=== PATIENT | male | born 1955 | race African-American/Black ===

== ENCOUNTER 2017-02-08 18:54 | Inpatient (IN) | payer MEDICARE, MEDICAID ==
[~2017-02-08] VITALS: Ht 180.3 cm; Wt 60.1 kg
[2017-02-08] MEDS ORDERED: BENZ2TAB10 PO (18:58)
[2017-02-08] MEDS ORDERED: OLAN20TA2 PO (18:58)
[2017-02-08] MEDS ORDERED: FLUO-125 PO (18:58)
[2017-02-08 20:08] LABS: BASOPHILS % (AUTO) 0.9 % (0.0-2.0); EOSINOPHILS % (AUTO) 1.2 % (1.0-6.0); HEMATOCRIT 45.4 % (41-53); HEMOGLOBIN 14.6 g/dL (13.5-17.5); LYMPHOCYTES # (AUTO) 2.7 K/uL (1.0-4.8); LYMPHOCYTES % (AUTO) 20.3 % (22.0-44.0); MEAN CORPUSCULAR HEMOGLOBIN 28.1 pg (26.0-34.0); MEAN CORPUSCULAR VOLUME 88 fL (80-100); MONOCYTES # (AUTO) 0.9 K/uL (0.1-1.0); MONOCYTES % (AUTO) 6.4 % (2.0-9.0); NEUTROPHILS # (AUTO) 9.6 K/uL (1.8-7.7); NEUTROPHILS % (AUTO) 71.2 % (40.0-70.0); PLATELET COUNT (AUTO) 285 K/uL (150-450); RED BLOOD CELL COUNT(AUTO) 5.19 MIL/uL (4.50-5.90); RED CELL DISTRIBUTION WIDTH 14.4 % (11.5-14.5); WHITE BLOOD COUNT (AUTO) 13.5 K/uL (4.5-11.0)
[2017-02-08 20:19] LABS: ANION GAP 6 mmol/L (8-16); CALCIUM, TOTAL 8.8 mg/dL (8.8-10.5); CARBON DIOXIDE 28 mmol/L (22-29); CHLORIDE 105 mmol/L (98-107); CREATININE 1.04 mg/dL (0.60-1.30); GLOMERULAR FILTR. RATE CALC > 60 mL/min (>60); SODIUM SERUM 139 mmol/L (136-145); UREA NITROGEN, BLOOD 26 mg/dL (7-18)
[2017-02-08 20:24] LABS: ALANINE AMINOTRANSFERASE 31 U/L (12-78); ALBUMIN 3.5 g/dL (3.4-5.0); ASPARTATE AMINOTRANSFERASE 12 U/L (15-37); BILIRUBIN,TOTAL 0.2 mg/dL (0.1-1.0); TOTAL PROTEIN, SERUM 7.2 g/dL (6.4-8.2)
[2017-02-08] MEDS ORDERED: ZOLPIDEM TARTRATE 10 MG TABLET PO PRN (22:30)
[2017-02-08] MEDS ORDERED: LORazepam 2 MG TABLET PO PRN (22:30)
[2017-02-08] MEDS ORDERED: HALOPERIDOL 5 MG TABLET PO PRN (22:30)
[2017-02-09 00:39] LABS: APPEARANCE,URINE CLEAR (CLEAR); GLUCOSE, URINE (UA) NEGATIVE (NEGATIVE); KETONES,URINE NEGATIVE (NEGATIVE); LEUKOCYTE ESTERASE ,URINE NEGATIVE (NEGATIVE); OCCULT BLOOD,URINE NEGATIVE (NEGATIVE); PH,URINE 5.5 (5.0-8.0); PROTEIN,URINE NEGATIVE (NEGATIVE)
[2017-02-09 00:40] LABS: ADD UA MICROSCOPIC NO
[2017-02-09 01:16] VITALS: BP 121/72
[2017-02-09 08:24] VITALS: BP 108/67
[2017-02-09 09:21] LABS: CHOL/HDL RATIO 4.4 (4.2-7.3)
[2017-02-09] MEDS ORDERED: PETROLATUM,WHITE 71 GM JELLY TP PRN (15:00)
[2017-02-09] MEDS ORDERED: MAG HYDROX/AL HYDROX/SIMETH ES 30 ML SUSPENSION UDCUP PO PRN (15:00)
[2017-02-09] MEDS ORDERED: LOPERAMIDE HCL 2 MG CAPSULE PO PRN (15:00)
[2017-02-09] MEDS ORDERED: ALBUTEROL SULFATE HFA 90 MCG/PUFF 8 GM INHALER IH PRN (15:00)
[2017-02-09] MEDS ORDERED: BACITRACIN 28.4 GM OINTMENT TP PRN (15:00)
[2017-02-09] MEDS ORDERED: IBUPROFEN 600 MG TABLET PO PRN (15:00)
[2017-02-09] MEDS ORDERED: ACETAMINOPHEN 325 MG TABLET PO PRN (15:00)
[2017-02-09] MEDS ORDERED: MAGNESIUM HYDROXIDE SUSPENSION 30 ML UDCUP PO PRN (15:00)
[2017-02-09] MEDS ORDERED: ONDANSETRON HCL 4 MG TABLET PO PRN (15:00)
[2017-02-09] MEDS ORDERED: CloNIDine HCL 0.1 MG TABLET PO PRN (15:00)
[2017-02-09] MEDS ORDERED: BENZOCAINE/MENTHOL LOZENGE MM PRN (15:00)
[2017-02-09 17:10] VITALS: BP 116/76
[2017-02-09] MEDS: OLANZapine 10 MG TABLET PO SCH (20:34)
[2017-02-09] MEDS: BENZTROPINE MESYLATE 2 MG TABLET PO SCH (20:34)
[2017-02-10 06:26] VITALS: BP 120/81
[2017-02-10 08:06] VITALS: BP 114/68
[2017-02-10] MEDS: NICOTINE 21 MG/24 HOUR PATCH TD SCH ×2 (09:00→09:57)
[2017-02-10] MEDS: FLUoxetine HCL 20 MG CAPSULE PO SCH (09:57)
[2017-02-10] MEDS: OLANZapine 10 MG TABLET PO SCH ×2 (09:57→20:32)
[2017-02-10 16:06] VITALS: BP 127/75
[2017-02-10] MEDS: BENZTROPINE MESYLATE 2 MG TABLET PO SCH (20:32)
[2017-02-11 01:22] VITALS: BP 125/73
[2017-02-11 08:13] VITALS: BP 116/70
[2017-02-11 08:24] LABS: BASOPHILS % (AUTO) 0.3 % (0.0-2.0); EOSINOPHILS % (AUTO) 2.4 % (1.0-6.0); HEMATOCRIT 44.5 % (41-53); HEMOGLOBIN 14.1 g/dL (13.5-17.5); LYMPHOCYTES % (AUTO) 29.7 % (22.0-44.0); MEAN CORPUSCULAR HEMOGLOBIN 27.8 pg (26.0-34.0); MEAN CORPUSCULAR HGB CONC 31.7 G/dL (31.0-37.0); MEAN CORPUSCULAR VOLUME 88 fL (80-100); MONOCYTES # (AUTO) 0.6 K/uL (0.1-1.0); MONOCYTES % (AUTO) 6.2 % (2.0-9.0); NEUTROPHILS # (AUTO) 6.2 K/uL (1.8-7.7); NEUTROPHILS % (AUTO) 61.4 % (40.0-70.0); PLATELET COUNT (AUTO) 273 K/uL (150-450); RED BLOOD CELL COUNT(AUTO) 5.07 MIL/uL (4.50-5.90); RED CELL DISTRIBUTION WIDTH 14.5 % (11.5-14.5); WHITE BLOOD COUNT (AUTO) 10.1 K/uL (4.5-11.0)
[2017-02-11] MEDS: FLUoxetine HCL 20 MG CAPSULE PO SCH (08:34)
[2017-02-11] MEDS: OLANZapine 10 MG TABLET PO SCH ×2 (08:34→20:37)
[2017-02-11] MEDS: NICOTINE 21 MG/24 HOUR PATCH TD SCH (08:45)
[2017-02-11 16:25] VITALS: BP 118/86
[2017-02-11] MEDS: BENZTROPINE MESYLATE 2 MG TABLET PO SCH (20:36)
[2017-02-12 05:14] VITALS: BP 113/79
[2017-02-12] MEDS: OLANZapine 10 MG TABLET PO SCH ×2 (08:35→20:40)
[2017-02-12] MEDS: FLUoxetine HCL 20 MG CAPSULE PO SCH (08:36)
[2017-02-12] MEDS: NICOTINE 21 MG/24 HOUR PATCH TD SCH (08:44)
[2017-02-12 09:42] VITALS: BP 118/78
[2017-02-12 16:12] VITALS: BP 105/65
[2017-02-12] MEDS: BENZTROPINE MESYLATE 2 MG TABLET PO SCH (20:40)
[2017-02-13 05:25] VITALS: BP 104/69
[2017-02-13] MEDS: OLANZapine 10 MG TABLET PO SCH (08:26)
[2017-02-13] MEDS: FLUoxetine HCL 20 MG CAPSULE PO SCH (08:26)
[2017-02-13 08:27] VITALS: BP 114/78
[2017-02-13] MEDS: NICOTINE 21 MG/24 HOUR PATCH TD SCH (08:27)
== END 2017-02-13 13:25 | disposition home or self-care (01) | DRG 885 ==
LOC: EMS 18:56 → B2X 23:41
PROVIDERS: ADMIT Psychiatry & Neurology Psychiatry; ATTEND Psychiatry & Neurology Psychiatry
DX: F20.0 Paranoid schizophrenia (principal); J44.9 Chronic obstructive pulmonary disease, unspecified; E78.5 Hyperlipidemia, unspecified; K21.9 Gastro-esophageal reflux disease without esophagitis; R45.87 Impulsiveness; Z53.29 Procedure and treatment not carried out because of patient's decision for other reasons; F17.200 Nicotine dependence, unspecified, uncomplicated; K59.00 Constipation, unspecified; G47.00 Insomnia, unspecified; Z91.14 Patient's other noncompliance with medication regimen; Z71.6 Tobacco abuse counseling; Z79.899 Other long term (current) drug therapy; Z56.0 Unemployment, unspecified
CPT/HCPCS: 99285; G0480

== ENCOUNTER 2022-07-23 10:18 | Emergency (ER) | payer MEDICARE, OTHER ==
[~2022-07-23] VITALS: Ht 180.3 cm; Wt 71.4 kg
[~2022-07-23 10:18] MED LIST: BENZ2TAB76 PO; OLAN20TA2 PO; PROZ10 PO
[2022-07-23] MEDS ORDERED: HYDR50CA7 PO (10:30)
[2022-07-23] MEDS ORDERED: RISP3TAB35 PO (11:24)
[2022-07-23] MEDS ORDERED: OLAN10 PO (11:24)
[2022-07-23] MEDS ORDERED: FLUO40CA PO (11:24)
[2022-07-23] MEDS ORDERED: RISP2TAB45 PO (11:24)
[2022-07-23] MEDS ORDERED: ACETAMINOPHEN 325 MG TABLET PO ONE (11:30)
[2022-07-23] MEDS ORDERED: LIDOCAINE 5% TRANSDERMAL PATCH TD ONE (11:30)
[2022-07-23 12:12] VITALS: BP 110/69
[2022-07-23] MEDS ORDERED: ACET-3385 PO (13:11)
== END 2022-07-23 13:37 | disposition home or self-care (01) ==
LOC: EMS 10:33
DX: M54.50 Low back pain, unspecified (principal); F31.9 Bipolar disorder, unspecified; F20.9 Schizophrenia, unspecified; F17.210 Nicotine dependence, cigarettes, uncomplicated
CPT/HCPCS: 72100; 99283

== ENCOUNTER 2023-04-19 20:18 | Emergency (ER) | payer MEDICARE, OTHER ==
[~2023-04-19] VITALS: Ht 180.3 cm; Wt 75.0 kg
[~2023-04-19 20:18] MED LIST changes: +ACET-3385 PO; +BENZ2TAB71 PO; -BENZ2TAB76 PO; +FLUO40CA PO; +HYDR50CA7 PO; +OLAN10 PO; -OLAN20TA2 PO; -PROZ10 PO; +RISP2TAB45 PO; +RISP3TAB35 PO
[2023-04-19] MEDS ORDERED: SODIUM CHLORIDE 0.9% 1,000 ML IV ONE (21:45)
[2023-04-19 22:24] LABS: BASOPHILS % (AUTO) 0.7 % (0.0-2.0); EOSINOPHILS % (AUTO) 1.6 % (1.0-6.0); HEMATOCRIT 36.7 % (41-53); LYMPHOCYTES % (AUTO) 27.2 % (22.0-44.0); MEAN CORPUSCULAR HEMOGLOBIN 29.4 pg (26.0-34.0); MEAN CORPUSCULAR HGB CONC 32.8 G/dL (31.0-37.0); MEAN CORPUSCULAR VOLUME 90 fL (80-100); MONOCYTES # (AUTO) 0.5 K/uL (0.1-1.0); MONOCYTES % (AUTO) 6.5 % (2.0-9.0); NEUTROPHILS # (AUTO) 4.6 K/uL (1.8-7.7); PLATELET COUNT (AUTO) 260 K/uL (150-450); RED CELL DISTRIBUTION WIDTH 14.7 % (11.5-14.5)
[2023-04-19 22:31] LABS: ANION GAP 6 mmol/L (8-16); CALCIUM, TOTAL 8.1 mg/dL (8.8-10.5); CARBON DIOXIDE 29 mmol/L (22-29); CHLORIDE 105 mmol/L (98-107); CREATININE 0.73 mg/dL (0.60-1.30); GLOMERULAR FILTR. RATE CALC > 60 mL/min (>60); GLUCOSE,RANDOM 120 mg/dL (70-110); POTASSIUM 3.5 mmol/L (3.5-5.1); SODIUM SERUM 140 mmol/L (136-145)
[2023-04-19 22:38] LABS: ALANINE AMINOTRANSFERASE 13 U/L (12-78); ALBUMIN 2.5 g/dL (3.4-5.0); ALKALINE PHOSPHATASE 104 U/L (46-116); ASPARTATE AMINOTRANSFERASE 10 U/L (15-37); BILIRUBIN,TOTAL 0.3 mg/dL (0.1-1.0); CREATINE KINASE, TOTAL ONLY 60 U/L (39-308)
[2023-04-19 23:57] LABS: APPEARANCE,URINE CLEAR (CLEAR); BILIRUBIN,URINE NEGATIVE (NEGATIVE); GLUCOSE, URINE (UA) NEGATIVE (NEGATIVE); KETONES,URINE NEGATIVE (NEGATIVE); LEUKOCYTE ESTERASE ,URINE NEGATIVE (NEGATIVE); NITRATE,URINE NEGATIVE (NEGATIVE); OCCULT BLOOD,URINE NEGATIVE (NEGATIVE); PH,URINE 6.5 (5.0-8.0); PROTEIN,URINE NEGATIVE (NEGATIVE); SPECIFIC GRAVITIY, URINE 1.008 (1.003-1.030); UROBILINOGEN,URINE <=1.0 mg/dL (<=1.0)
[2023-04-20 01:00] VITALS: BP 129/68; PULSE 79; RESP 17; TEMP 97.3
== END 2023-04-20 01:08 | disposition home or self-care (01) ==
LOC: EMS 20:20
DX: E86.0 Dehydration (principal); E46 Unspecified protein-calorie malnutrition; F20.9 Schizophrenia, unspecified; F31.9 Bipolar disorder, unspecified; F17.210 Nicotine dependence, cigarettes, uncomplicated
CPT/HCPCS: 99291; 96360; 80053; 81003; 82550; 84484; 85025; 36415; 71045; 93005; J7030

== ENCOUNTER → 2023-06-09 | Outpatient (CLI) | payer MEDICARE, OTHER ==
[2023-06-09 13:55] LABS: BASOPHILS % (AUTO) 0.7 % (0.0-2.0); EOSINOPHILS % (AUTO) 1.3 % (1.0-6.0); HEMATOCRIT 36.5 % (41-53); HEMOGLOBIN 12.3 g/dL (13.5-17.5); LYMPHOCYTES # (AUTO) 2.3 K/uL (1.0-4.8); LYMPHOCYTES % (AUTO) 21.8 % (22.0-44.0); MEAN CORPUSCULAR HEMOGLOBIN 30.1 pg (26.0-34.0); MEAN CORPUSCULAR HGB CONC 33.6 G/dL (31.0-37.0); MEAN CORPUSCULAR VOLUME 90 fL (80-100); MONOCYTES # (AUTO) 0.6 K/uL (0.1-1.0); MONOCYTES % (AUTO) 5.8 % (2.0-9.0); NEUTROPHILS # (AUTO) 7.4 K/uL (1.8-7.7); NEUTROPHILS % (AUTO) 70.4 % (40.0-70.0); PLATELET COUNT (AUTO) 388 K/uL (150-450); RED BLOOD CELL COUNT(AUTO) 4.08 MIL/uL (4.50-5.90); RED CELL DISTRIBUTION WIDTH 14.3 % (11.5-14.5); WHITE BLOOD COUNT (AUTO) 10.5 K/uL (4.5-11.0)
[2023-06-09 14:17] LABS: % IRON SATURATION 21.9 % (30-44); IRON, SERUM 73 mcg/dL (50-175); TOTAL IRON BINDING CAPACITY 332 mcg/dL (250-450)
[2023-06-09 14:37] LABS: HEMOGLOBIN A1C 5.5 % (3.8-5.6)
[2023-06-09 15:02] LABS: ALANINE AMINOTRANSFERASE 18 U/L (12-78); ALBUMIN 3.2 g/dL (3.4-5.0); ALKALINE PHOSPHATASE 126 U/L (46-116); ANION GAP 9 mmol/L (8-16); ASPARTATE AMINOTRANSFERASE 15 U/L (15-37); BILIRUBIN,TOTAL 0.4 mg/dL (0.1-1.0); CALCIUM, TOTAL 9.2 mg/dL (8.8-10.5); CARBON DIOXIDE 26 mmol/L (22-29); CHLORIDE 102 mmol/L (98-107); CHOL/HDL RATIO 3.6 (4.2-7.3); CHOLESTEROL 191 mg/dL (131-200); CREATININE 0.79 mg/dL (0.60-1.30); FERRITIN 69 ng/mL (26-388); GLOMERULAR FILTR. RATE CALC > 60 mL/min (>60); GLUCOSE,RANDOM 89 mg/dL (70-110); HDL CHOLESTEROL 53 mg/dL (40-60); LDL CHOL (CALC.) 122 mg/dL (0-130); POTASSIUM 4.2 mmol/L (3.5-5.1); SODIUM SERUM 137 mmol/L (136-145); THYROID STIMULATING HORMONE 1.45 uIU/mL (0.36-3.74); TOTAL PROTEIN, SERUM 7.4 g/dL (6.4-8.2); TRIGLYCERIDES 79 mg/dL (15-150); UREA NITROGEN, BLOOD 21 mg/dL (7-18)
[2023-06-09 15:20] LABS: VITAMIN B12 LEVEL 297 pg/mL (211-911); VITAMIN D,TOTAL (25-0H) 11 ng/mL (30-100)
== END | disposition home or self-care (01) ==
LOC: LABMN 13:12
PROVIDERS: ATTEND Internal Medicine
DX: Z13.1 Encounter for screening for diabetes mellitus (principal); D64.9 Anemia, unspecified; F20.9 Schizophrenia, unspecified; R94.6 Abnormal results of thyroid function studies; E55.9 Vitamin D deficiency, unspecified; E78.5 Hyperlipidemia, unspecified
CPT/HCPCS: 80053; 80061; 82306; 82607; 82728; 83036; 83540; 83550; 84443; 85025